=== PATIENT | female | born 1995 | race Caucasian/White ===

== ENCOUNTER 2018-02-01 09:29 | Emergency (ER) | payer BC ==
[2018-02-01 09:40] VITALS: BP 126/74; PULSE 106; TEMP 98.7; BMI 24.7
[2018-02-01] MEDS ORDERED: IBUPROFEN 400 MG TABLET (FP) PO ONE (10:20)
--- NOTE | 2018-02-01 10:20 | PDOC ---
History of Present Illness - General Chief Complaint: Abscess Boil Stated Complaint: ABSCESS/ LT AXILLA Time Seen by Provider: 02/01/18 09:47 History Source: Patient Exam Limitations: No Limitations - History of Present Illness Initial Comments: 02/01/18 10:59 Patient is a 22-year-old female no past medical history who presents emergency Department with a abscess to her left axilla. Patient states that she noticed the abscess start for approximately 3 days ago. Pt. reports shaving her axilla every day. She tried taking Motrin for pain relief with minimal effect. She states that the area is more painful to the touch. Denies fevers, chills, shortness of breath, nausea, vomiting and diarrhea. Past History - Travel Traveled outside of the country in the last 30 days: No Close contact w/someone who was outside of country & ill: No - Past Medical History Allergies/Adverse Reactions: Allergies Allergy/AdvReac Type Severity Reaction Status Date / Time No Known Allergies Allergy Verified 02/01/18 09:37 Home Medications: Ambulatory Orders Cephalexin Monohydrate [Keflex -] 500 mg PO BID #14 capsule 02/01/18 Sulfamethoxazole/Trimethoprim [Bactrim Ds -] 1 tab PO BID #14 tablet 02/01/18 COPD: No - Suicide/Smoking/Psychosocial Hx Smoking History: Never smoked Information on smoking cessation initiated: No Hx Alcohol Use: No Drug/Substance Use Hx: No Substance Use Type: None Review of Systems - Review of Systems Able to Perform ROS?: Yes Comments:: 02/01/18 10:57 CONSTITUTIONAL: Absent: fever, chills, diaphoresis, generalized weakness, malaise, loss of appetite SKIN: Present: L axilla abscess Absent: rash, itching, pallor HEMATOLOGIC/IMMUNOLOGIC: Absent: easy bleeding, easy bruising, lymphadenopathy, frequent infections ENDOCRINE: Absent: unexplained weight gain, unexplained weight loss, heat intolerance, cold intolerance PSYCHIATRIC: Absent: anxiety, depression, suicidal or homicidal ideation, hallucinations. Is the patient limited Armenian proficient: No *Physical Exam - Vital Signs Last Vital Signs Temp Pulse Resp BP Pulse Ox 98.7 F 106 H 18 126/74 100 02/01/18 09:38 02/01/18 09:38 02/01/18 09:38 02/01/18 09:38 02/01/18 09:38 - Physical Exam Comments: 02/01/18 19:58 GENERAL: Well developed, well nourished. Awake and alert. No acute distress. SKIN: 3cm round abscess with minimal fluctuance to the L axilla. Induration present to the posterior aspect of the abscess.Warm and dry. Normal capillary refill. No rashes. No jaundice. NEUROLOGICAL: Alert, awake, appropriate. Cranial nerves 2-12 intact. No deficits to light touch and temperature in face, upper extremities and lower extremities. No motor deficits in the in face, upper extremities and lower extremities. Normoreflexic in the upper and lower extremities. Normal speech. Toes are down- going bilaterally. Gait is normal without ataxia. PSYCHIATRIC: Cooperative. Good eye contact. Appropriate mood and affect. Procedures - Incision and Drainage I&D Site: Left: Axilla Betadine cleansed: Yes Anesthesia: 1% Lidocaine Volume(ml): 7 Blade Size: 11 Iodinated Packin/2 in Medical Decision Making - Medical Decision Making 02/01/18 11:54 Pt. is a 22 y/o F who presents to the ED with an abscess under her L axilla for 3 days. Given location of abscess, it was confirmed with US to r/o enlarged lymph node. I&D performed. INCISION AND DRAINAGE PROCEDURE: The skin was prepped with Betadine solution. 7cc's of 1% lidocaine with sodium bicarbonate was injected subcutaneously for local anesthesia. Incision of the center of the abscess was performed with a #11 blade. Purulent material was expressed from the incision. A curved clamp was used to break up loculations within the abscess. Further purulent material was expressed from the incision. Gauze packing was placed within the wound. A clean, dry, sterile dressing was placed. Patient was advised regarding wound care and followup for packing removal. Return precautions given Pt. started on bactrim and keflex. Pt instructed to return in two days for a wound check. *DC/Admit/Observation/Transfer Diagnosis at time of Disposition: Abscess - Discharge Dispostion Disposition: HOME Condition at time of disposition: Stable Admit: No - Prescriptions Prescriptions: Cephalexin Monohydrate [Keflex -] 500 mg PO BID #14 capsule Sulfamethoxazole/Trimethoprim [Bactrim Ds -] 1 tab PO BID #14 tablet - Referrals - Patient Instructions Printed Discharge Instructions: DI for Incision and Drainage of a Skin Abscess Additional Instructions: You have an abscess/cellulitis. This is a skin infection. Please take the Bactrim and Keflex twice a day for one week. Please take all the antibiotics even if you feel better. Keep the area clean and dry. Please avoid shaving the skin around the area of redness. You may take Tylenol or Motrin as needed for pain. Return to the ED on Sunday for a wound check and to have the packing removed. Return to the emergency department sooner if you have worsening redness, fevers , increasing pain, or have any changes in your symptoms. - Post Discharge Activity Forms/Work/School Notes: Back to Work
== END 2018-02-01 12:11 | disposition home or self-care (01) ==
LOC: JERFT 09:29
PROC: 0H9CXZZ Drainage of Left Upper Arm Skin, External Approach (ICD-10-PCS; principal; 2018-02-01)
DX: L02.412 Cutaneous abscess of left axilla (principal)
CPT/HCPCS: 76882; 87070; 87205; 99281-25

== ENCOUNTER 2018-02-03 11:49 | Emergency (ER) | payer BC ==
[2018-02-03 11:59] VITALS: BP 115/73; PULSE 80; TEMP 98.3; BMI 24.7
--- NOTE | 2018-02-03 12:05 | PDOC ---
Suture Removal/Wound Check HPI - History of Present Illness Chief Complaint: Revisit,Wound Recheck Stated Complaint: FOLLOW UP Time Seen by Provider: 02/03/18 12:01 History Source: Yes: Patient Exam Limitations: Yes: No Limitations Treated at: [facility] ED - Previous ED Treatment Type of procedure performed on last visit: Yes: I&D of Abscess Tetanus Immunization: Yes: Up to Date Antibiotics Prescribed: Yes (Bactrim and Keflex) Past History - Travel Traveled outside of the country in the last 30 days: No Close contact w/someone who was outside of country & ill: No - Past Medical History Allergies/Adverse Reactions: Allergies Allergy/AdvReac Type Severity Reaction Status Date / Time No Known Allergies Allergy Verified 02/03/18 11:59 Home Medications: Ambulatory Orders Cephalexin Monohydrate [Keflex -] 500 mg PO BID #14 capsule 02/01/18 Sulfamethoxazole/Trimethoprim [Bactrim Ds -] 1 tab PO BID #14 tablet 02/01/18 COPD: No - Suicide/Smoking/Psychosocial Hx Smoking History: Never smoked Hx Alcohol Use: No Drug/Substance Use Hx: No Substance Use Type: None Suture Removal/Wound Check PE - Physical Exam Laceration/Wound Check Symptoms: reports: Improved (1cm of induration to area around I&D. Less than initial presentation). denies: Redness, Discharge Current Severity Level: None Maximum Severity Level: None Location of Laceration/Wound: left: Arm (L axilla, packing in place. No drainage present. Induration approximatley 1cm round, improved since last visit. ) *Review of Systems - Review of Systems Constitutional: No: Chills, Fever, Weakness Integumentary: Yes: Other (Packing in place to L axilla, induration present). No: Erythema, Rash Medical Decision Making - Medical Decision Making 02/03/18 12:04 Patient is a 22-year-old female who presents to emergency department today for follow-up of her abscess that was drained on 02/01/18. Abscess is improving at this time. VSS, afebrile. Patient taking both Bactrim and Keflex. Packing removed. Slight drainage from the site. New packing placed. 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 Instructed patient to continue with antibiotics. Return precautions given. Patient says all discharge instructions and all questions were answered. *DC/Admit/Observation/Transfer Diagnosis at time of Disposition: Wound check, abscess - Discharge Dispostion Disposition: HOME Condition at time of disposition: Stable Admit: No - Referrals Referrals: Kenny Cruz MD [Staff Physician] - - Patient Instructions Additional Instructions: You have cellulitis. This is a skin infection. You may remove the packing on Sunday. If you feel that the area is much better , you may pull the packing tomorrow. Please continue to take the Bactrim and Keflex twice a day for one week. Please take all the antibiotics even if you feel better. Please avoid shaving the skin around the area of redness. You may take Tylenol or Motrin as needed for pain. Please follow up with your primary care doctor in 1 week. Return to the emergency department if you have worsening redness, fevers, increasing pain, or have any changes in your symptoms. - Post Discharge Activity Forms/Work/School Notes: Back to Work
== END 2018-02-03 12:16 | disposition home or self-care (01) ==
LOC: JERFT 11:49
DX: Z48.01 Encounter for change or removal of surgical wound dressing (principal); L02.412 Cutaneous abscess of left axilla
CPT/HCPCS: 99281-25

== ENCOUNTER 2019-12-15 12:07 | Emergency (ER) | payer OTHER, BC ==
[2019-12-15 12:13] VITALS: BP 121/78; PULSE 72; TEMP 98.1; BMI 25.6
--- NOTE | 2019-12-15 12:38 | PDOC ---
History of Present Illness - General Chief Complaint: Blood/Body Fluid Exposure SJR Stated Complaint: HIV EXPOSURE Time Seen by Provider: 12/15/19 12:14 - History of Present Illness Initial Comments: 12/15/19 12:36 24-year-old female without comorbidities presents to the emergency room requesting post HIV exposure prophylaxis. She was splashed on the second finger of her right hand after cleaning blood off a surface after an IV was removed from a known HIV source patient. She is concerned because the is dry skin and finger of exposure. 12/15/19 12:37 Patient states she cleaned her finger with soap and water as well as bleach Past History - Past Medical History Allergies/Adverse Reactions: Allergies Allergy/AdvReac Type Severity Reaction Status Date / Time No Known Allergies Allergy Verified 02/03/18 11:59 Home Medications: Ambulatory Orders Cephalexin Monohydrate [Keflex -] 500 mg PO BID #14 capsule 02/01/18 Sulfamethoxazole/Trimethoprim [Bactrim Ds -] 1 tab PO BID #14 tablet 02/01/18 COPD: No - Psycho Social/Smoking Cessation Hx Smoking History: Never smoked Hx Alcohol Use: No Drug/Substance Use Hx: No Substance Use Type: None Review of Systems - Review of Systems Constitutional: Yes: See HPI *Physical Exam - Vital Signs Last Vital Signs Temp Pulse Resp BP Pulse Ox 98.1 F 72 16 121/78 99 12/15/19 12:08 12/15/19 12:08 12/15/19 12:08 12/15/19 12:08 12/15/19 12:08 - Physical Exam 12/15/19 12:37 GENERAL: The patient is awake, alert, and fully oriented, in no acute distress. HEAD: Normal with no signs of trauma. NEUROLOGICAL: Cranial nerves II through XII grossly intact. PSYCH: Normal mood, normal affect. SKIN: Warm, Dry, normal turgor, no rashes or lesions noted. ED Treatment Course - LABORATORY CBC & Chemistry Diagram: 12/15/19 12:24 12/15/19 12:24 Medical Decision Making - Medical Decision Making 12/15/19 12:37 This is a very low risk of HIV transmission. This was explained to the patient she would like to go ahead with postexposure prophylactic treatment. Lab work was drawn. I have reviewed the pathophysiology with the patient. They are in agreement with the treatment plan all questions were answered to their satisfaction. Und erstanding for follow-up without fail was also conveyed to the patient. Again they are in agreement. 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 This is half the treatment you will require for 1 of the medications. Return to the emergency ro om for further issues. - Post Discharge Activity Work/Back to School Note: Back to Work
[2019-12-15 12:39] LABS: HEMATOCRIT 38.6 % (32.4-45.2); HEMOGLOBIN 13.1 GM/dL (10.7-15.3); RBC 4.19 M/mm3 (3.60-5.2); WHITE BLOOD COUNT 5.9 K/mm3 (4.0-10.0)
[2019-12-15 12:40] LABS: BASO % 0.5 % (0-2.0); EOS % 0.4 % (0-4.5); LYMPH % 24.1 % (8-40); MCH 31.4 pg (25.7-33.7); MEAN CELL VOLUME 92.2 fl (80-96); MEAN PLT VOLUME 9.4 fl (7.5-11.1); MONO % 3.1 % (3.8-10.2); NEUT % 71.9 % (42.8-82.8); PLATELET COUNT 242 K/MM3 (134-434); RDW 12.7 % (11.6-15.6)
[2019-12-15 13:07] LABS: ALBUMIN 3.8 g/dl (3.4-5.0); BILIRUBIN,TOTAL 0.3 mg/dL (0.2-1); BLOOD UREA NITROGEN 10.8 mg/dL (7-18); CALCIUM 9.3 mg/dL (8.5-10.1); CREATININE 0.7 mg/dL (0.55-1.3); PHOSPHOROUS 3.2 mg/dL (2.5-4.9); POTASSIUM 4.4 mmol/L (3.5-5.1); TOT PROT 7.6 g/dl (6.4-8.2); URIC ACID 3.6 mg/dL (2.6-7.2)
[2019-12-15] MEDS ORDERED: HIV POST EXPOSURE PROPHYLAXIS KIT NR ONE (13:48)
[2019-12-15] MEDS ORDERED: HIV POST EXPOSURE PROPHYLAXIS KIT PO ONE (13:51)
== END 2019-12-15 13:57 | disposition home or self-care (01) ==
LOC: JERFT 12:07
DX: Z77.21 Contact with and (suspected) exposure to potentially hazardous body fluids (principal); Z20.6 Contact with and (suspected) exposure to human immunodeficiency virus [HIV]; X58.XXXA Exposure to other specified factors, initial encounter; Y93.F9 Activity, other caregiving; Y92.238 Other place in hospital as the place of occurrence of the external cause; Y99.0 Civilian activity done for income or pay
CPT/HCPCS: 36415; 80053; 82465; 82977; 83615; 84100; 84478; 84550; 85025; 86317; 86704; 86706; 86803; 87340; 87389; 99283-25

== ENCOUNTER 2021-06-07 21:59 | Emergency (ER) | payer BC | END 2021-06-07 22:41 | disposition home or self-care (01) | LOC: JVIRT 21:59 | DX: Z20.822 Contact with and (suspected) exposure to COVID-19 (principal) | CPT/HCPCS: C9803; Q3014-GT; U0003; U0005 ==

== ENCOUNTER 2022-08-02 18:55 | Emergency (ER) | payer BC ==
[2022-08-02] MEDS ORDERED: LACTATED RINGERS SOLUTION 1000 ML INFUS.BAG IV ONE (18:59)
[2022-08-02] MEDS ORDERED: METOCLOPRAMIDE HCL INJECTION 10 MG/2 ML VIAL IVPUSH ONE (18:59)
[2022-08-02] MEDS ORDERED: ACETAMINOPHEN 1000 MG/100 ML BAG IVPB ONE (18:59)
[2022-08-02] MEDS ORDERED: METOCLOPRAMIDE HCL INJECTION 10 MG/2 ML VIAL ONE (19:07)
[2022-08-02] MEDS ORDERED: ACETAMINOPHEN INJECTION 100 ML IVPB ONE (19:07)
[2022-08-02 19:12] VITALS: BP 100/69; PULSE 90; RESP 20; BMI 25.6
[2022-08-02 20:21] LABS: HEMATOCRIT 37.5 % (32.4-45.2); HEMOGLOBIN 12.8 GM/dL (10.7-15.3); MCH 31.7 pg (25.7-33.7); MCHC 34.2 g/dl (32.0-36.0); MEAN CELL VOLUME 92.7 fl (80-96); MEAN PLT VOLUME 8.6 fl (7.5-11.1); PLATELET COUNT 228 10^3/uL (134-434); RBC 4.05 M/mm3 (3.60-5.2); RDW 12.5 % (11.6-15.6); WHITE BLOOD COUNT 7.4 K/mm3 (4.0-10.0)
[2022-08-02 20:22] LABS: BASO % 0.5 % (0-2.0); EOS % 0.8 % (0-4.5); LYMPH % 28.4 % (8-40); NEUT % 63.3 % (42.8-82.8)
[2022-08-02 20:35] LABS: CHLORIDE 107 mmol/L (98-107); SODIUM 140 mmol/L (136-145)
[2022-08-02 20:38] LABS: CALCIUM 8.5 mg/dL (8.5-10.1)
[2022-08-02 20:39] LABS: ALBUMIN 3.7 g/dl (3.4-5.0); ANION GAP 7 MMOL/L (8-16); BLOOD UREA NITROGEN 13.2 mg/dL (7-18); CO2 26 mmol/L (21-32); GLUCOSE,RANDOM 105 mg/dL (74-106)
[2022-08-02 20:41] LABS: CREATININE 0.6 mg/dL (0.55-1.3); SGOT/AST 12 U/L (15-37); SGPT/ALT 15 U/L (13-61)
[2022-08-02 20:43] LABS: TOT PROT 6.9 g/dl (6.4-8.2)
[2022-08-02 20:44] LABS: BILIRUBIN,TOTAL 0.2 mg/dL (0.2-1)
[2022-08-02 20:46] LABS: ALK PHOS 69 U/L (45-117)
[2022-08-02 21:05] LABS: INR 1.13 (0.83-1.09)
[2022-08-02 21:08] LABS: ACTIVATED PTT 26.1 SECONDS (25.2-36.5)
== END 2022-08-02 22:42 | disposition home or self-care (01) ==
LOC: JER 18:55
PROC: 3E0333Z Introduction of Anti-inflammatory into Peripheral Vein, Percutaneous Approach (ICD-10-PCS; principal; 2022-08-02)
PROC: 3E033GC Introduction of Other Therapeutic Substance into Peripheral Vein, Percutaneous Approach (ICD-10-PCS; 2022-08-02)
DX: R55 Syncope and collapse (principal)
CPT/HCPCS: 36415; 70450-TC; 70551-TC; 71045-TC-FY; 72125-TC; 80053; 82962; 83735; 84484; 84703; 85025; 85379; 85610; 85730; 93005; 93010; 99285-25; C9803-CS; U0003; U0005